=== PATIENT | male | born 1990 | race Caucasian/White ===

== ENCOUNTER → 2018-04-21 | Outpatient (CLI) | payer OTHER ==
[~2018-04-21] MED LIST: DAYQUIL; LIDEX0.05% T; MOTRIN800 MG PO; PREDNICOT20 MG PO; SINGULAIR10 MG PO; VIBRAMYCIN100 MG PO
== END | disposition home or self-care (01) ==
LOC: RAD 08:54
DX: M25.572 Pain in left ankle and joints of left foot (principal)

== ENCOUNTER 2024-06-04 12:37 | Emergency (ER) | payer OTHER ==
[~2024-06-04] VITALS: Ht 187.9 cm; Wt 171.0 kg
[2024-06-04] MEDS ORDERED: PENICILLIN VK500 MG PO (12:46)
== END 2024-06-04 12:52 | disposition home or self-care (01) ==
LOC: ED 12:37
DX: K02.9 Dental caries, unspecified (principal); Z88.8 Allergy status to other drugs, medicaments and biological substances; Z90.89 Acquired absence of other organs; Z98.890 Other specified postprocedural states

== ENCOUNTER 2024-07-11 15:26 | Emergency (ER) | payer OTHER ==
[~2024-07-11] VITALS: Ht 187.9 cm; Wt 171.0 kg
[~2024-07-11 15:26] MED LIST changes: +PENICILLIN VK500 MG PO
[2024-07-11 16:36] LABS: BILIRUBIN Negative (Negative); BLOOD 3+ (Negative); CLARITY Cloudy (Clear); COLOR Dark Yellow (Yellow); GLUCOSE Negative (Negative); KETONE Negative (Negative); LEUKO ESTERASE 3+ (Negative); NITRITE Positive (Negative); PH 6.5 (4.5-8.0); UROBILINOGEN >= 8.0 E.U./dl (0.0-1.0)
[2024-07-11 17:09] LABS: BACTERIA 3+; RBC TNTC rbc/hpf (0-2); WBC 41-50 wbc/hpf (0-5)
[2024-07-11] MEDS ORDERED: CIPRO500 MG PO (17:14)
== END 2024-07-11 17:23 | disposition home or self-care (01) ==
LOC: ED 15:26
PROVIDERS: Internal Medicine
DX: N39.0 Urinary tract infection, site not specified (principal); Z88.8 Allergy status to other drugs, medicaments and biological substances; Z90.89 Acquired absence of other organs; Z98.890 Other specified postprocedural states

== ENCOUNTER 2024-11-14 18:47 | Emergency (ER) | payer SELFPAY ==
[~2024-11-14] VITALS: Wt 177.8 kg
[~2024-11-14 18:47] MED LIST changes: +CIPRO500 MG PO
[2024-11-14 19:08] LABS: BASO # 0.1 10*3/uL (0.0-0.1); BASO % 0.5 % (0.0-1.0); EOS # 0.2 10*3/uL (0.0-0.4); EOS % 1.6 % (1.0-4.0); HEMATOCRIT 46.6 % (42.0-52.0); MEAN CELL VOLUME 88.4 fl (80.0-94.0); MEAN CORPUSCULAR HGB 30.4 pg (27.0-31.0); MEAN CORPUSCULAR HGB CONC 34.3 g/dl (33.0-37.0); MEAN PLATELET VOLUME 10.4 fl (9.6-12.3); MONO # 0.8 10*3/uL (0.1-1.0); MONO % 7.7 % (3.0-9.0); NEUT # 7.8 10*3/uL (2.3-7.9); NEUT % 71.3 % (47.0-73.0); PLATELET COUNT AUTOMATED 213 10*3/uL (130-400); RED BLOOD COUNT 5.27 10*6/uL (4.50-5.90)
[2024-11-14 19:20] LABS: ACT PARTIAL THROMBO TIME 27.6 SECONDS (20.0-32.1)
[2024-11-14] MEDS ORDERED: ASPIRIN, CHEWABLE 81 MG TAB PO ONE (19:30)
[2024-11-14] MEDS ORDERED: HEPARIN SODIUM 250 ML IV SCH (19:30)
[2024-11-14 19:33] LABS: ALKALINE PHOSPHATASE 69 U/L (46-116); BUN 14 mg/dl (9-23); CHLORIDE 102 mmol/L (98-107); SGPT/ALT 22 U/L (5-49); TOTAL PROTEIN 7.2 gm/dL (6.0-8.0)
[2024-11-14] MEDS ORDERED: MORPHINE Sulfate 2 MG/ML SYR IV ONE (19:45)
[2024-11-14] MEDS ORDERED: Metoprolol Tartrate 25 MG TAB PO ONE (19:45)
[2024-11-14] MEDS ORDERED: Dextrose/Nitroglycerin 250 ML IV SCH (20:55)
== END 2024-11-14 22:14 | disposition short-term general hospital (02) ==
LOC: ED 18:47
PROVIDERS: Internal Medicine
DX: I21.4 Non-ST elevation (NSTEMI) myocardial infarction (principal); R79.89 Other specified abnormal findings of blood chemistry; I10 Essential (primary) hypertension; R68.84 Jaw pain; M54.6 Pain in thoracic spine; Z88.8 Allergy status to other drugs, medicaments and biological substances; Z90.89 Acquired absence of other organs; Z98.890 Other specified postprocedural states

== ENCOUNTER → 2024-12-04 | Outpatient (CLI) | payer SELFPAY | END | disposition home or self-care (01) | LOC: RAD 14:51 | PROVIDERS: ATTEND Physician Assistant Surgical | DX: J90 Pleural effusion, not elsewhere classified (principal) ==

== ENCOUNTER 2025-08-25 12:08 | Emergency (ER) | payer SELFPAY ==
[~2025-08-25] VITALS: Ht 187.9 cm; Wt 184.6 kg
[2025-08-25] MEDS ORDERED: ASPIRIN ADULT L81 M2 PO (12:15)
[2025-08-25] MEDS ORDERED: LISINOPRIL40 MG PO (12:15)
[2025-08-25] MEDS ORDERED: Lopressor25 MG PO (12:15)
[2025-08-25] MEDS ORDERED: ATORVASTATIN CA40 M1 PO (12:15)
[2025-08-25] MEDS ORDERED: Amoxicillin/Clavulanate Pota 875 MG TAB PO ONE (12:30)
[2025-08-25] MEDS ORDERED: predniSONE 20 MG TAB PO ONE ×2 (12:30→12:59)
[2025-08-25] MEDS ORDERED: ACETAMINOPHEN 325 MG TAB PO ONE (12:30)
[2025-08-25] MEDS ORDERED: FLONASE ALLERG9.9 ML NAS (12:37)
[2025-08-25] MEDS ORDERED: ZYRTEC10 M2 PO (12:37)
[2025-08-25] MEDS ORDERED: PREDNISONE10 M1 PO (12:37)
[2025-08-25] MEDS ORDERED: AMOX-CLAV 875-1 EACH PO (12:37)
[2025-08-25] MEDS ORDERED: Amoxicillin/Clavulanate Pota 875 MG TAB ONE (12:59)
[2025-08-25] MEDS ORDERED: ACETAMINOPHEN 325 MG TAB ONE (12:59)
== END 2025-08-25 13:57 | disposition home or self-care (01) ==
LOC: ED 12:08
DX: J06.9 Acute upper respiratory infection, unspecified (principal); F17.290 Nicotine dependence, other tobacco product, uncomplicated; Z91.048 Other nonmedicinal substance allergy status; Z79.82 Long term (current) use of aspirin; Z79.899 Other long term (current) drug therapy; I25.2 Old myocardial infarction; Z90.89 Acquired absence of other organs